=== PATIENT | male | born 1980 | race Caucasian/White ===

== ENCOUNTER 2020-05-18 08:40 | Day surgery (SDC) | payer BC, OTHER ==
[2020-05-17 10:58] VITALS: BMI 29.5
--- NOTE | 2020-05-17 19:56 | P.GSHP ---
History of Present Illness H&P Date: 05/17/20 39 yo male with a several day history of right flank pain due to a proximal right 5 mm ureteral stone. He was seen at [facility]. He was seen by me today. He has had minimal pain relief. He was given multiple treatment options. He comes for right ureteroscopy with laser lithotripsy and possible stent placement - Constitutional Constitutional: Denies chills, Denies fever - EENT Eyes: denies blurred vision, denies pain Ears, nose, mouth and throat: Denies headache, Denies sore throat - Cardiovascular Cardiovascular: Denies chest pain, Denies shortness of breath - Respiratory Respiratory: Denies cough, Denies 7 - Gastrointestinal Gastrointestinal: Denies abdominal pain, Denies diarrhea, Denies nausea, Denies vomiting - Genitourinary (Female) Genitourinary: Denies dysuria, Denies hematuria - Genitourinary (Male) Genitourinary: Denies dysuria, Denies hematuria - Musculoskeletal Musculoskeletal: Denies myalgias - Integumentary Integumentary: Denies pruritus, Denies rash - Neurological Neurological: Denies numbness, Denies weakness - Psychiatric Psychiatric: Denies anxiety, Denies depression - Endocrine Endocrine: Denies fatigue, Denies weight change Past Medical History Past Medical History: GERD/Reflux Additional Past Medical History / Comment(s): kidney stone, History of Any Multi-Drug Resistant Organisms: None Reported Past Surgical History: No Surgical Hx Reported Past Anesthesia/Blood Transfusion Reactions: No Reported Reaction Additional Past Anesthesia/Blood Transfusion Reaction / Comment(s): never had anesthesia Smoking Status: Never smoker - Past Family History Father Family Medical History: Cancer Medications and Allergies Home Medications Medication Instructions Recorded Confirmed Type HYDROcodone/APAP 5-325MG [[place] 1 tab PO Q4-6H PRN 05/17/20 05/17/20 History 5-325] Ketorolac [Toradol] 10 mg PO Q6HR PRN 05/17/20 05/17/20 History Tamsulosin [Flomax] 0.4 mg PO DAILY 05/17/20 05/17/20 History Allergies Allergy/AdvReac Type Severity Reaction Status Date / Time No Known Allergies Allergy Verified 05/17/20 10:51 Surgical - Exam - General well developed, well nourished, moderate distress - Eyes PERRL - ENT no hearing loss - Neck trachea midline - Respiratory normal expansion, normal respiratory effort - Cardiovascular Rhythm: regular - Abdomen Abdomen: soft, tender - Genitourinary normal penis with no external lesions, testicles present - Integumentary no rash, no growths - Neurologic normal coordination, normal sensation - Musculoskeletal normal gait, normal posture - Psychiatric oriented to time, oriented to person, oriented to place, speech is normal, memory intact Results - Imaging CT scan - abdomen: report reviewed, image reviewed CT scan - pelvis: report reviewed, image reviewed Assessment and Plan Assessment: Impression: Rt ureteral stone with obstruction and pain Plan: right ureteroscopy with laser lithotripsy and possible stent placement.
[~2020-05-18 08:40] MED LIST: FAMOTIDINE 20 MG/2 ML VIAL IV PRN; LACTATED RINGERS 1,000 ML IV SCH; fentaNYL (PF) 50 MCG/ML 2 ML AMP IV PRN
[2020-05-18] MEDS ORDERED: ONDANSETRON 4 MG/2 ML VIAL ONE (09:41)
[2020-05-18] MEDS ORDERED: DEXAMETHASONE SOD PHOSPHATE 10 MG/ML 1 ML VIAL IV ONE (09:45)
--- NOTE | 2020-05-18 10:05 | XR ---
EXAMINATION TYPE: XR KUB DATE OF EXAM: 05/18/2020 COMPARISON: NONE HISTORY: Pain TECHNIQUE: One view abdominal series FINDINGS: The osseous structures are intact. The bowel gas pattern is nonspecific. Left kidney: No suspicious calcifications. Right kidney: There is a mid pole 2 mm calculus. There also is a calculus overlying the right transve rse process of L4 measuring approximately 4 mm in diameter. Pelvis: Nonspecific calcifications. SI joints symmetric. IMPRESSION: 1. Suspect a 2 mm right renal calculus and a 4 mm mid right ureteral calculus.
[2020-05-18] MEDS ORDERED: PROPOFOL 10 MG/ML 20 ML VIAL IV ONE (10:14)
[2020-05-18] MEDS ORDERED: LIDOCAINE 1% INJ 10MG/ML (20 ML MDV) ONE (10:14)
[2020-05-18] MEDS ORDERED: SUCCINYLCHOLINE CHLORIDE 100 MG/5 ML SYR IV ONE (10:14)
[2020-05-18] MEDS ORDERED: fentaNYL (PF) 50 MCG/ML 2 ML AMP ONE (10:14)
[2020-05-18] MEDS ORDERED: FAMOTIDINE 20 MG/2 ML VIAL IVP ONE (10:14)
[2020-05-18] MEDS ORDERED: MIDAZOLAM 2 MG/2 ML VIAL ONE (10:14)
[2020-05-18] MEDS ORDERED: ROCURONIUM BROMIDE 10 MG/ML 5 ML VIAL IV ONE (10:14)
[2020-05-18] MEDS ORDERED: LACTATED RINGERS 1,000 ML IV ONE (11:11)
--- NOTE | 2020-05-18 11:55 | P.OP ---
Date of Procedure: 05/18/20 Preoperative Diagnosis: Right ureteral calculus with obstruction Postoperative Diagnosis: Same Procedure(s) Performed: Cystoscopy, right ureteroscopy with laser lithotripsy, placement of 626 double-J catheter Anesthesia: NABIL Surgeon: Demond Loo Estimated Blood Loss (ml): 10 Pathology: other (Stone) Condition: stable Disposition: PACU Indications for Procedure: Patient is a pleasant 39-year-old gentleman with an impacted right ureteral stone for approximately one week. It is causing severe colic. He comes for ureteroscopy and laser lithotripsy Description of Procedure: Patient is brought to the operating suite. Given general anesthesia on the operating table. He's placed lithotomy position with sterile prep and drape. The stone is seen on fluoroscopy. Cystoscopy of the Foroblique lens 22-Azeri sheath was performed the urethra is normal. The prostate is not obstructing. The bladder healy unremarkable. The 035 wires passed up the ureter by the stone which is quite impacted. Over the wires passed a 63-35-Khzxab reentry ureteral sheath. I passed the flexible ureteroscope up to the stone. The stone is very impacted. With the 200 laser probe and 4 W of energy the stone was broken into tiny pieces. The larger fragments are basketed. There is a lot of edema or the stone is impacted. I thus we'll place a double-J catheter. The wires backloaded on the cystoscope after the reentry sheath is removed. Over the wires passed a 6 x 26 double-J catheter that coils in the renal pelvis and the bladder is drained. Cystoscope was removed. The patient is awakened and returned recovery room good condition. He'll be discharged home upon recovery and found the office in 10-14 days for stent removal.
[2020-05-18 12:11] VITALS: TEMP 97
[2020-05-18 12:13] VITALS: RESP 16
--- NOTE | 2020-05-18 12:54 | FL ---
EXAMINATION TYPE: FL guidance operating room DATE OF EXAM: 05/18/2020 HISTORY: Fluoroscopy time 2 minutes and 41 seconds of fluoroscopy provided. IMPRESSION: 1. Fluoroscopy time.
[2020-05-18] MEDS ORDERED: hydrALAZINE HCL 20 MG/ML 1 ML VIAL ONE ×2 (13:09→14:22)
[2020-05-18] MEDS ORDERED: hydrALAZINE HCL 20 MG/ML 1 ML VIAL IVP ONE ×2 (13:11→14:24)
[2020-05-18] MEDS ORDERED: LABETALOL 5 MG/ML VIAL MDV IVP ONE ×2 (13:58→14:08)
[2020-05-18 14:46] VITALS: BP 166/94; PULSE 77
== END 2020-05-18 14:54 | disposition home or self-care (01) ==
LOC: OR 08:40
PROVIDERS: ATTEND Urology
DX: N20.1 Calculus of ureter (principal); K21.9 Gastro-esophageal reflux disease without esophagitis; Z79.899 Other long term (current) drug therapy; Z87.442 Personal history of urinary calculi; Z80.9 Family history of malignant neoplasm, unspecified
CPT/HCPCS: 82365; 74018; 52356; C2625; C1769; J2250; J0360; J1100; J0690; J2405; J2001; J3010; J0330; J2704

== ENCOUNTER → 2023-04-10 | Outpatient (CLI) | payer BC ==
--- NOTE | 2023-04-11 08:09 | MR ---
EXAMINATION TYPE: MR shoulder RT wo con DATE OF EXAM: 04/10/2023 COMPARISON: Outside right shoulder x-rays March 27, 2023 HISTORY: Rt shoulder pain for 6 years with history of remote injury. TECHNIQUE: Multiplanar, multisequence imaging of the right shoulder is performed without contrast. FINDINGS: Rotator Cuff: Distal supraspinatus and infraspinatus tendons are intact. Subscapularis tendon intact. Rotator cuff muscle bulk preserved. Acromioclavicular Joint: Type II downsloping acromion. Acromioclavicular joint shows no significant spurring or capsular hypertrophy. Glenohumeral Joint: No significant effusion. Small bony projection inferior medial humeral head. Labrum: The labrum appears grossly intact given limitation of non-arthrogram study. Biceps Tendon: The long head of biceps is in normal location within bicipital groove. Bone marrow signal: No focal abnormal marrow signal is appreciated. Other: No additional significant abnormality is appreciated. IMPRESSION: No rotator cuff or labral tear. Mild degenerative changes. Type II downsloping acromion. Correlate for underlying impingement.
== END | disposition home or self-care (01) ==
LOC: RADMRIMAIN 18:51
PROVIDERS: ATTEND Orthopaedic Surgery
DX: M19.011 Primary osteoarthritis, right shoulder (principal)

== ENCOUNTER → 2024-06-12 | Outpatient (CLI) | payer BC ==
--- NOTE | 2024-06-12 17:28 | CA ---
Transthoracic Echo Report Name: Raoul Hess Age: 43 Gender: M : 1980 Exam Date: 06/12/2024 12:54 Exam Location: [facility] Ht (in): 72 Wt (lb): 210 Ordering Physician: Abdirahman Anaya DO Attending/Referring Phys: Spinning Frame Tender Trista Thorpe RDCS Procedure CPT: Indications: R03.0 ELEVATED BLOOD-PRESSURE READING, W/O DIAGNOS Cardiac Hx: FAM HX Technical Quality: Good Contrast 1: Total Dose (mL): Contrast 2: Total Dose (mL): MEASUREMENTS (Male / Female) Normal Values 2D ECHO LV Diastolic Diameter PLAX 4.9 cm 4.2 - 5.9 / 3.9 - 5.3 cm LV Systolic Diameter PLAX 3.4 cm IVS Diastolic Thickness 1.2 cm 0.6 - 1.0 / 0.6 - 0.9 cm LVPW Diastolic Thickness 1.2 cm 0.6 - 1.0 / 0.6 - 0.9 cm LV Relative Wall Thickness 0.5 RV Internal Dim ED PLAX 3.2 cm LA Systolic Diameter LX 3.1 cm 3.0 - 4.0 / 2.7 - 3.8 cm LV Diastolic Volume MOD 4C 129.4 cm??? LV Systolic Volume MOD 4C 50.4 cm??? LV Ejection Fraction MOD 4C 61.0 % LV Cardiac Index MOD 4C 2279.7 cm???/min???m??? LV Diastolic Length 4C 10.9 cm LV Systolic Length 4C 8.5 cm LV Diastolic Volume MOD 2C 106.4 cm??? LV Systolic Volume MOD 2C 30.7 cm??? LV Ejection Fraction MOD 2C 71.1 % LV Cardiac Index MOD 2C 2184.0 cm???/min???m??? LV Diastolic Length 2C 9.4 cm LV Systolic Length 2C 7.7 cm LA Volume 67.4 cm??? 18 - 58 / 22 - 52 cm??? LA Volume Index 30.4 cm???/m??? 16 - 28 cm???/m??? M-MODE Aortic Root Diameter MM 3.8 cm AV Cusp Separation MM 2.5 cm DOPPLER AV Peak Velocity 137.5 cm/s AV Peak Gradient 7.6 mmHg MV Area PHT 4.5 cm??? Mitral E Point Velocity 97.0 cm/s Mitral A Point Velocity 68.6 cm/s Mitral E to A Ratio 1.4 MV Deceleration Time 167.9 ms FINDINGS Left Ventricle Left ventricular ejection fraction is estimated at 60-65 %. Left ventricular cavity size normal. Mildly increased septal wall thickness. Normal left ventricular wall motion. Right Ventricle Normal right ventricular size. Unable to estimate the right ventricular systolic pressure. Right Atrium Normal right atrial size. No right atrial thrombus or mass seen. Left Atrium Mildly increased left atrial volume. Mildly increased left atrial area. No left atrial thrombus or mass present. Mitral Valve Structurally normal mitral valve. No mitral stenosis, regurgitation or prolapse. Aortic Valve Trileaflet aortic valve. No aortic valve stenosis or regurgitation. Tricuspid Valve Structurally normal tricuspid valve. No tricuspid stenosis, regurgitation or prolapse. Pulmonic Valve Structurally normal pulmonic valve. No pulmonic regurgitation. Pericardium No pericardial effusion. No pleural effusion. Aorta Mild aortic dilatation at the level of the sinuses of valsalva 38 mm CONCLUSIONS Normal LV function Previewed by: Dr. Luis Fernando Kruse MD (Electronically Signed) Final Date: 12 June 2024 17:27
== END | disposition home or self-care (01) ==
LOC: RADECHMAIN 12:42
PROVIDERS: ATTEND Internal Medicine
DX: R03.0 Elevated blood-pressure reading, without diagnosis of hypertension (principal)
CPT/HCPCS: 93306